=== PATIENT | male | born 1935 | race Caucasian/White ===

== ENCOUNTER 2018-02-13 15:18 | Outpatient (CLI) | payer MEDICARE ==
--- NOTE | 2018-02-13 16:09 | RAD ---
CERVICAL SPINE SEVEN VIEWS: HISTORY: Cervicalgia. COMPARISON: None. FINDINGS: There is no prevertebral soft tissue swelling. The predental space is normal. On the open-mouth pro jection, limited evaluation of the odontoid process. The lateral masses of C1 and C2 articulate appr opriately. On the AP projection, there are degenerative changes of the facets. Calcifications of the right neck , compatible with atherosclerosis. The oblique views suggest significant bilateral foraminal narrowing. Evaluation is limited. Cervical spine vertebral body height is maintained. No fracture. In the neutral position, there is 1 mm of retrolisthesis of C4 upon C5. Retrolisthesis resolves upon flexion, and there is 2 mm of ret rolisthesis of C4 upon C5 upon extension. In the neutral position, there is 2.7 mm of anterolisthesi s of C7 upon T1. Upon flexion, there is 3.1 mm of anterolisthesis. Upon extension, there is 3.7 mm of anterolisthesis. IMPRESSION: Spondylolisthesis and degenerative changes, as above. Consider MRI. POS: JAY
== END 2018-02-13 15:19 | disposition home or self-care (01) ==
LOC: RAD 15:18
PROVIDERS: ATTEND Family Medicine
DX: M99.01 Segmental and somatic dysfunction of cervical region (principal); M46.01 Spinal enthesopathy, occipito-atlanto-axial region; M54.2 Cervicalgia; M99.00 Segmental and somatic dysfunction of head region; M47.892 Other spondylosis, cervical region; M43.12 Spondylolisthesis, cervical region
CPT/HCPCS: 72052

== ENCOUNTER 2018-07-31 17:36 | Inpatient (IN) | payer MEDICARE ==
[~2018-07-31 17:36] MED LIST: Iopamidol 370 76% 100 ML VIAL ONE
[2018-07-31 18:48] LABS: #Eosinphils 0.1 thou/uL (0.0-0.7); #Lymphocytes 2.1 thou/uL (1.20-3.40); #Monocytes 0.6 thou/uL (0.11-0.59); #Neutrophils 10.9 thou/uL (1.40-6.50); %Basophils 0.3 % (0.0-1.0); %Eosinophils 0.6 % (0.0-10.0); %Lymphocytes 15.4 % (21.0-51.0); %Monocytes 4.4 % (0.0-10.0); %Neutrophils 79.3 % (42.0-75.0); Hemoglobin 15.5 g/dL (14.0-18.0); Mean Corpuscular Hemoglobin 32.2 pg (27.0-31.0); Mean Corpuscular Volume 97.7 fL (78.0-98.0); Platelet Count 251 thou/uL (130-400); RBC Distribution Width 11.5 % (11.5-14.5); White Blood Cell (WBC) Count 13.8 thou/uL (4.8-10.8)
[2018-07-31 19:08] LABS: ALT (SGPT) 32 U/L (8-55); AST (SGOT) 23 U/L (5-34); Albumin 4.5 g/dL (3.4-4.8); Alkaline Phosphatase 72 U/L (40-150); Anion Gap 19 mmol/L (10-20); BUN (Urea Nitrogen) 27 mg/dL (8.4-25.7); Calc. Creatinine Clearance 0 mL/min (70-130); Calcium 10.8 mg/dL (7.8-10.44); Carbon Dioxide 25 mmol/L (23-31); Chloride 101 mmol/L (98-107); Estimated GFR-MDRD 40; Globulin 2.9 g/dL (2.4-3.5); Glucose 190 mg/dL (83-110); Potassium 3.6 mmol/L (3.5-5.1); Protein, Total 7.4 g/dL (5.8-8.1); Sodium 141 mmol/L (136-145)
[2018-07-31 19:38] LABS: CKMB 1.9 ng/mL (0-6.6)
[2018-07-31] MEDS ORDERED: Digoxin 0.5 MG/2 ML AMP ONE (19:39)
--- NOTE | 2018-07-31 19:46 | RAD ---
RADIOGRAPH CHEST 1 VIEW: HISTORY: An 83-year-old male with chest pain. FINDINGS: There are no air space densities, pulmonary edema, pneumothorax, or cardiomegaly. The lateral costop hrenic angles are sharp. IMPRESSION: No acute cardiopulmonary findings. jn [] POS: JAY
--- NOTE | 2018-07-31 20:08 | CT ---
CT ARTERIOGRAM CHEST WITH IV CONTRAST AND 3D MIP IMAGIN07/31/18 HISTORY: Cough. Chest pain. FINDINGS: There is good contrast opacification of the pulmonary arteries. Contrast has not yet reached the aort a. There is calcification within the arterial structures. Mild atelectasis at the lung bases. No pleural fluid or pneumothorax. Anterior most images show small nonspecific cystic lesions within the liver and hyperdense stones in the dependent portion of the gallbladder lumen. IMPRESSION: No CT evidence of pulmonary embolus. Atherosclerosis. Cholelithiasis. POS: BST
[2018-07-31] MEDS ORDERED: Aspirin Chewable 81 MG TAB ONE (20:47)
[2018-07-31] MEDS ORDERED: Enoxaparin Sodium 80 MG/0.8 ML SYRINGE ONE (20:56)
[2018-08-01 01:24] LABS: CKMB 1.5 ng/mL (0-6.6)
[2018-08-01] MEDS ORDERED: cloNIDine 0.1 MG TAB PO PRN (10:50)
[2018-08-01] MEDS ORDERED: Diabetic Tussin 200 MG/10 ML UDCUP PO PRN (10:50)
[2018-08-01] MEDS ORDERED: Ondansetron PF 4 MG/2 ML Vial IVP PRN (10:50)
[2018-08-01] MEDS ORDERED: Acetaminophen 500 MG TAB PO PRN (10:50)
[2018-08-01] MEDS ORDERED: Ondansetron ODT 4 MG TAB PO PRN (10:50)
[2018-08-01] MEDS ORDERED: Sodium Chloride 0.9% 1,000 ML IV SCH (10:50)
[2018-08-01] MEDS ORDERED: Benzonatate 100 MG CAP PO PRN (10:50)
[2018-08-01] MEDS ORDERED: Enoxaparin Sodium 60 MG/0.6 ML SYRINGE SC SCH ×3 (11:00→21:00)
[2018-08-01] MEDS ORDERED: Digoxin 0.25 MG TAB PO SCH (12:30)
[2018-08-01 12:31] VITALS: BMI 21.9
[2018-08-01] MEDS: Dronedarone HCl 400 MG TAB PO SCH (17:21)
--- NOTE | 2018-08-01 18:30 | CON ---
DATE OF CONSULTATION: 08/01/2018 REASON FOR CONSULTATION: Atrial fibrillation. HISTORY OF PRESENT ILLNESS: Mr. Manning is a very pleasant 83-year-old white gentleman, who comes to the hospital for an irregular heartbeat. He had noticed for the last week cough and just generalized weakness. He went to see Dr. Nunez, his PCP, and she heard an irregular heartbeat on physical exam, did an EKG and found him to be in atrial fibrillation with RVR, so he was transferred over to the hospital for further care. He denies any palpitations. No syncope or presyncope. He has only been having just weakness and coughing for the last week. He has never been in atrial fibrillation in the past. He denies any chest pain, tightness, or pressure. No shortness of breath. PAST MEDICAL HISTORY: 1. Burkitt lymphoma, currently in remission, treated at [facility]. 2. Renal failure during chemotherapy, had dialysis for some time, but not anymore. PAST SURGICAL HISTORY: 1. Left knee repair. 2. Right shoulder repair. 3. Left shoulder repair. 4. Cardiac cath with several stents placed in the past. SOCIAL HISTORY: Social alcohol use. No drug use. No tobacco. He does chew tobacco. FAMILY HISTORY: No early coronary artery disease. OUTPATIENT MEDICATIONS: Include: 1. Aspirin 81 a day. 2. Coreg 3.125 b.i.d. ALLERGIES: NO KNOWN DRUG ALLERGIES. REVIEW OF SYSTEMS: A 12-point review of systems was done, and it was all negative unless stated in the history of present illness. PHYSICAL EXAMINATION: VITAL SIGNS: Temperature 98.2, pulse 95, respiratory rate 16, saturation 97% on room air, and blood pressure 103/62. GENERAL: Awake, alert, and oriented x3, in no distress. HEENT: Normocephalic and atraumatic. NECK: Supple. LUNGS: Clear. CARDIOVASCULAR: Irregularly irregular heart rate in the 80s. Normal S1 and S2. No S3. No murmurs. ABDOMEN: Soft. Positive bowel sounds. EXTREMITIES: No edema. SKIN: Warm and dry. LABORATORY DATA: Laboratory work was reviewed. White count of 13, hemoglobin of 15, hematocrit of 46, platelet count of 251. Chemistries with BUN of 27, creatinine of 1.64, GFR of 40, glucose of 190, calcium of 10.8. Normal sodium and potassium. Magnesium was 1.7. Troponin was 0.58, 0.40, and 0.47. CK-MB was normal x2. Normal TSH. Albumin of 4.5. EKG was reviewed, atrial fibrillation with RVR. CT of the chest showed no evidence of pulmonary embolus. There are atherosclerosis and cholelithiasis. Chest x-ray was reviewed. ASSESSMENT: 1. New onset atrial fibrillation. 2. Possible bronchitis. 3. Elevated troponins, likely demand ischemia secondary to their behavior and to clinical scenario. 4. History of Burkitt lymphoma, in remission. Completely cured apparently. PLAN: 1. Since it is his first time in atrial fibrillation, we will plan on doing a JONNATHAN cardioversion. We will start him on Multaq and Eliquis this evening, and we will plan on doing this JONNATHAN cardioversion in the morning. We spoke at length about the risks and benefits of the procedure, and he agrees to proceed. 2. Eventually, he will need an ischemic workup. We will get an echocardiogram as well inpatient. Thank you for letting me to participate in the care of your patient. We will follow. Job ID: [id number]
[2018-08-01] MEDS: Carvedilol 3.125 MG TAB PO SCH (20:14)
[2018-08-01] MEDS: Apixaban 2.5 MG TAB PO SCH (20:14)
[2018-08-01] MEDS: Famotidine 20 MG TAB PO SCH (20:15)
[2018-08-01] MEDS ORDERED: Simvastatin 40 MG TAB PO SCH (21:00)
[2018-08-01] MEDS ORDERED: Ezetimibe 10 MG TAB PO SCH (21:00)
[2018-08-02 05:27] LABS: Anion Gap 17 mmol/L (10-20); BUN (Urea Nitrogen) 27 mg/dL (8.4-25.7); Calc. Creatinine Clearance 47 mL/min (70-130); Calcium 9.7 mg/dL (7.8-10.44); Carbon Dioxide 19 mmol/L (23-31); Chloride 107 mmol/L (98-107); Estimated GFR-MDRD 61; Glucose 96 mg/dL (83-110); Sodium 139 mmol/L (136-145)
[2018-08-02 05:48] LABS: Band 8 % (5-11); Eosinophils 4 % (0-10); Hemoglobin 13.2 g/dL (14.0-18.0); Lymphocytes 19 % (21-51); MDiff Complete? YES; Mean Corpuscular HGB CONC 33.4 g/dL (32.0-36.0); Mean Corpuscular Hemoglobin 33.1 pg (27.0-31.0); Mean Corpuscular Volume 99.3 fL (78.0-98.0); Mean Platelet Volume 8.9 fL (7.4-10.4); Monocytes 6 % (0-10); Neutrophil 63 % (42-75); Platelet Count 224 thou/uL (130-400); RBC Distribution Width 11.3 % (11.5-14.5); Red Blood Cell (RBC) Count 3.98 mill/uL (4.70-6.10); White Blood Cell (WBC) Count 10.1 thou/uL (4.8-10.8)
--- NOTE | 2018-08-02 08:26 | HP ---
PRIMARY CARE PROVIDER: Marcia Nunez MD CHIEF COMPLAINT: Cough and dizziness. HISTORY OF PRESENT ILLNESS: This is an 83-year-old male, who was referred to [facility] by his primary care provider after presenting with increased cough, general weakness, and dizziness. The patient states that his primary care provider took a look at him and thought he looked "terrible," and did an EKG in the office. The patient was discovered with atrial fibrillation with rapid ventricular response and referred to the emergency room, where a 12-lead EKG confirmed atrial fibrillation with heart rates in the 130s. The patient received digoxin, IV fluids, and Lovenox in the emergency room with rate control noted on telemetry monitoring. The patient was also noted with elevated troponin I ranging between 0.41 to 0.58. The patient denied any specific chest pain or cardiac complaints, but has noted some palpitations over the last 2 weeks. The patient admits to increased cough, congestion, and general weakness over 2 weeks stretch and has had minimal energy and decreased activity level. The patient denies any prior history of atrial fibrillation, but does state a significant history of coronary artery disease, status post cardiac stent placement x5. The patient denies any lower extremity swelling, unilateral weakness, difficulty with speech, or facial asymmetry. The patient denies any change to his chronic medication regimen or exposure history. The patient currently denies any specific symptoms. PAST MEDICAL HISTORY: 1. Coronary artery disease, status post cardiac stent placement x5. 2. Burkitt lymphoma, in current remission. 3. Dyslipidemia. 4. Hypertension. 5. Status post acute myocardial infarction. 6. Osteoarthritis. 7. History of renal failure secondary to chemotherapy, resolved. PAST SURGICAL HISTORY: 1. Status post bilateral shoulder repair. 2. Status post left mandibular lymph node removal. 3. Status post knee surgery. 4. Status post hernia repair. CURRENT MEDICATIONS: Based on prior admission, 1. Carvedilol 3.125 mg p.o. b.i.d. 2. Vytorin 10/80 mg 1 tab p.o. daily. 3. Folic acid 1 mg p.o. daily. 4. Enteric-coated aspirin 81 mg p.o. daily. ALLERGIES: NO KNOWN DRUG ALLERGIES. FAMILY HISTORY: Positive for father with stroke and hypertension. Mother had coronary artery disease. SOCIAL HISTORY: The patient is since 2013. No current alcohol, tobacco, or illicit drug use. Functional of all activities of daily living. REVIEW OF SYSTEMS: CONSTITUTIONAL: Negative for weight loss or gain, ability to conduct usual activities. SKIN: Negative for rash, itching. EYES: Negative for double vision, pain. ENT/MOUTH: Negative for nose bleeding, neck stiffness, pain, tenderness. CARDIOVASCULAR: Negative for palpitations, dyspnea on exertion, orthopnea. RESPIRATORY: Negative for shortness of breath, wheezing, cough, hemoptysis, fever or night sweats. GASTROINTESTINAL: Negative for poor appetite, abdominal pain, heartburn, nausea, vomiting, constipation, or diarrhea. GENITOURINARY: Negative for urgency, frequency, dysuria, nocturia. MUSCULOSKELETAL: Negative for pain, swelling. NEUROLOGIC/PSYCHIATRIC: Negative for anxiety, depression. ALLERGY/IMMUNOLOGIC: Negative for skin rash, bleeding tendency. Otherwise negative except as stated per HPI. PHYSICAL EXAMINATION: VITAL SIGNS: Currently, blood pressure 100/77, pulse 95, respiratory rate 16, temperature 98.1 degrees Fahrenheit, O2 saturation 100% on room air. GENERAL APPEARANCE: This is an 83-year-old male, alert and oriented x3, pleasant, conversant, in no acute distress. HEENT: Pupils are equal, round, reactive to light and accommodation. Extraocular muscles are intact. No scleral icterus. No conjunctival injection. Nares patent. OP is clear. Teeth in good repair. NECK: Supple. No cervical adenopathy. No thyromegaly. No carotid bruits. No JVD appreciated. Cervical spine with full active and passive range of motion. CHEST: Lungs are clear to auscultation bilaterally. CARDIOVASCULAR: S1 and S2 with irregular rate and rhythm. ABDOMEN: Rounded, soft, nontender, and nondistended. Bowel sounds are positive in all 4 quadrants. There is no hepatosplenomegaly. No abdominal bruits. No rebound or guarding appreciated. EXTREMITIES: Warm and dry with fair turgor. No clubbing, cyanosis, or asymmetric edema appreciated. Pulses palpable distally at the dorsalis pedis, posterior tibial, and popliteal arteries bilaterally. Capillary refill less than 2 seconds. NEUROLOGIC: Cranial nerves 2 through 12 are grossly intact. No focal or lateralizing signs appreciated. PERTINENT LAB AND X-RAY FINDINGS: Sodium 141, potassium 3.6, chloride 101, CO2 of 25, BUN 27, creatinine 1.64, estimated GFR of 40, glucose 190, calcium 10.8. LFTs within normal limits. Troponin I ranged between 0.41 to 0.58. CBC showed a white blood cell count of 13.8, hemoglobin 15.5, hematocrit 47, platelet count 251 with 79% neutrophils. Portable chest x-ray dated 07/31/2018 by my review shows no acute cardiopulmonary process. CT angiogram of the chest dated 07/31/2018 showed no evidence for pulmonary embolus. EKG dated 07/31/2018 by my interpretation shows atrial fibrillation with rapid ventricular response, heart rates in the 130s. Attenuated R-waves noted in the precordial leads. Left axis deviation. ASSESSMENT AND PLAN: 1. Atrial fibrillation with rapid ventricular response. Questionable onset given the patient's pulmonary complaints over 2 weeks time span prior to admission. We will continue rate control strategy and initiate digoxin 0.25 mg daily. Resume Coreg 3.125 mg p.o. b.i.d. We will consult Cardiology Service for evaluation. Check 2D transthoracic echocardiogram. CHADSVASC 2 score of 4. Currently, we will initiate Lovenox 60 mg subcutaneously q.12 hours and plan for oral anticoagulation for discharge. Check TSH and magnesium level. 2. Acute kidney injury. Suspect volume mediated. We will continue intravenous normal saline at 100 mL/hour. Avoid nephrotoxic agents and limit contrast exposure. Repeat creatinine in the a.m. 3. Non-ST elevation myocardial infarction. We will continue Lovenox as stated previously. Continue aspirin 81 mg daily. We will consult Cardiology Service for evaluation. Check 2D transthoracic echocardiogram. 4. Dyslipidemia. We will confirm home regimen and resume antihyperlipidemic therapy. 5. Prophylaxis. SCDs while in bed. Pepcid 20 mg p.o. b.i.d. 6. Code status is full. Surrogate medical decision maker is the patient's daughter. Job ID: [id number]
[2018-08-02] MEDS ORDERED: Non-Formulary Item 1 EACH (Ezetimibe/Simvastatin [Vytorin] 1 TABLET) PO SCH (09:00)
[2018-08-02] MEDS: Dronedarone HCl 400 MG TAB PO SCH (09:14)
[2018-08-02] MEDS: Carvedilol 3.125 MG TAB PO SCH (09:15)
[2018-08-02] MEDS: Famotidine 20 MG TAB PO SCH (09:15)
[2018-08-02] MEDS: Apixaban 2.5 MG TAB PO SCH (09:15)
--- NOTE | 2018-08-02 09:54 | PDOC.PN ---
- Subjective Encounter Start Date: 08/02/18 Encounter Start Time: 09:45 Subjective: f/u for A-fib RVR with variable rate currently. No new complaints -: and receiving Multaq, Eliquis, Coreg. - Objective Resuscitation Status - Order Detail: 08/01/18 10:35 Resuscitation Status Routine Resuscitation Status: FULL: Full Resuscitation MAR Reviewed: Yes Vital Signs & Weight: Vital Signs (12 hours) Temp Pulse Resp BP BP Pulse Ox 08/02/18 08:00 98.8 F 86 16 100/67 98 08/02/18 03:25 98.9 F 51 L 16 100/65 92 L 08/01/18 23:35 99 F 100 14 100/67 93 L Weight Weight 149 lb I&O: 08/01/18 08/02/18 08/03/18 06:59 06:59 06:59 Intake Total 480 Output Total 250 Balance 230 Result Diagrams: 08/02/18 04:29 08/02/18 04:29 Additional Labs: Laboratory Tests 08/01/18 08/01/18 11:18 11:18 Magnesium 1.7 TSH 3rd Generation 1.4668 Radiology Reviewed by me: Yes (2D echo - pending) EKG Reviewed by me: Yes (Tele - A-fib in low 100's) Phys Exam - Physical Examination Constitutional: NAD HEENT: PERRLA, sclera anicteric, oral pharynx no lesions Neck: no nodes, no JVD, supple, full ROM Respiratory: no wheezing, no rales, no rhonchi, clear to auscultation bilateral S1, S2 Cardiovascular: no significant murmur, no rub, gallop, irregular Gastrointestinal: soft, non-tender, no distention, positive bowel sounds Musculoskeletal: no edema, pulses present Neurological: normal sensation, moves all 4 limbs Psychiatric: normal affect, A&O x 3 Skin: normal turgor, cap refill <2 seconds Dx/Plan (1) Atrial fibrillation with rapid ventricular response Code(s): I48.91 - UNSPECIFIED ATRIAL FIBRILLATION Status: Acute Comment: Appears new-onset, plan for JONNATHAN/Cardioversion today, continue rate-control strategy, Multaq, Coreg and Eliquis (2) Demand ischemia of myocardium Code(s): I24.8 - OTHER FORMS OF ACUTE ISCHEMIC HEART DISEASE Status: Acute Comment: Likely due to #1, will need ischemic workup in the near future, ASA, Zocor (3) KVNG (acute kidney injury) Code(s): N17.9 - ACUTE KIDNEY FAILURE, UNSPECIFIED Status: Acute Comment: Improved with IVF's, avoid nephrotoxic meds and limit contrast exposure (4) Dyslipidemia Code(s): E78.5 - HYPERLIPIDEMIA, UNSPECIFIED Status: Chronic Comment: Continue Zocor 80mg HS (5) CAD (coronary artery disease) Code(s): I25.10 - ATHSCL HEART DISEASE OF [place] CORONARY ARTERY W/O ANG PCTRS Status: Chronic Comment: Continue ASA, Zocor, Coreg, outpt workup for ischemia - Plan social worker clinical, out of bed/ambulate, DVT proph w/SCDs Stable currently -: Continue Multaq 400mg BID -: Continue Eliquis 2.5mg BID -: JONNATHAN/Cardioversion today -: 2D echo pending * .
[2018-08-02 12:00] VITALS: BP 94/61; TEMP 99
[2018-08-02] MEDS ORDERED: PROPOFOL 20 ML ONE (12:24)
[2018-08-02] MEDS ORDERED: ePHEDrine/0.9% NaCl/PF SYRINGE 50 mg/10 ml ONE ×2 (12:41→16:22)
--- NOTE | 2018-08-02 14:11 | PDOC.CTH ---
Cardiology Progress Note - Subjective He had his JONNATHAN cardioversion and converted to sinus to several PAC's. - Objective Vital Signs Temp Pulse Resp BP BP Pulse Ox 08/02/18 11:57 99.0 F 86 16 94/61 100 08/02/18 08:00 98.8 F 86 16 100/67 98 08/02/18 07:35 98 08/02/18 03:25 98.9 F 51 L 16 100/65 92 L Weight 149 lb 08/01/18 08/02/18 08/03/18 06:59 06:59 06:59 Intake Total 480 Output Total 250 Balance 230 - Physical Examination General/Neuro: alert & oriented x3, NAD Neck: no JVD present Lungs: unlabored respirations Heart: RRR Abdomen: NT/ND Extremities: other: (no edema) - Telemetry Telemetry Rhythm: Afib --> NSR with PAC's - Labs Result Diagrams: 08/02/18 04:29 08/02/18 04:29 Troponin/CKMB CK-MB (CK-2) 1.5 ng/mL (0-6.6) 08/01/18 00:31 Troponin I 0.475 ng/mL (< 0.028) H* 08/01/18 00:31 - Assessment/Plan 1. Afib RVR, new onset 2. Dilated CM EF at 35-40% on JONNATHAN, new onset. PLAN: - Switch Multaq to AMiodarone due to LV dysfunction. - Will load amiodarone at 400 mg bid for 7 days then 200 mg daily - May d/c home. Will plan on seeing him back in clinic in 3 weeks and schedule outpatient stress and repeat echo.
[2018-08-02] MEDS ORDERED: PROPOFOL 200 MG/20 ML VIAL ONE (16:22)
[2018-08-02] MEDS ORDERED: Simvastatin 40 MG TAB PO SCH (21:00)
[2018-08-02] MEDS ORDERED: Amiodarone 200 MG TAB PO SCH (21:00)
--- NOTE | 2018-08-03 03:29 | DIS ---
DATE OF ADMISSION: 07/31/2018 DATE OF DISCHARGE: 08/02/2018 DISCHARGE DIAGNOSES: 1. New-onset atrial fibrillation with rapid ventricular response. 2. Dilated cardiomyopathy with ejection fraction of 35% to 40%. 3. Status post cardioversion with return to sinus mechanism. 4. Demand ischemia of the myocardium. 5. Acute kidney injury, resolved. 6. Dyslipidemia. 7. Coronary artery disease, chronic and stable. CONSULTATIONS: Dr. Torres with Cardiology Service. PERTINENT LAB AND X-RAY FINDINGS: Creatinine ranged between 1.15 to 1.64. Estimated GFR ranged between 40 to 61. Calcium ranged between 9.7 to 10.8. Magnesium level 1.7. LFTs within normal limits. Troponin I ranged between 0.409 to 0.581. TSH 1.5. CBC showed a white blood cell count ranged between 10.1 to 13.8. Portable chest x-ray dated 07/31/2018, showed no acute cardiopulmonary process. CT angiogram of the chest dated 07/31/2018, showed no evidence for pulmonary embolus. HOSPITAL COURSE: The patient was admitted to the telemetry unit after initially presenting with atrial fibrillation with rapid ventricular response, initially managed with IV fluids, digoxin, and subcutaneous Lovenox. The patient was evaluated by the Cardiology Service with recommendations to proceed with transesophageal echocardiogram followed by cardioversion. The patient continued on anticoagulation with CHADSVASc2 score of 4, placed on Eliquis 2.5 mg b.i.d. The patient underwent cardioversion on 08/02/2018 with successful return to sinus mechanism. The patient transitioned to amiodarone 400 mg b.i.d. with recommendations for 7-day course followed by 200 mg daily thereafter. Overall, the patient remained clinically stable during the hospital course with stable vital signs. I have examined the patient at time of discharge and discussed followup instructions. The patient overall clinically stable and ready for discharge on 08/02/2018. DISCHARGE MEDICATIONS: 1. Amiodarone 400 mg p.o. b.i.d. x7 days, followed by 200 mg p.o. daily. 2. Eliquis 2.5 mg p.o. b.i.d. 3. Coreg 3.125 mg p.o. b.i.d. 4. Enteric-coated aspirin 81 mg p.o. daily. 5. Ferrous sulfate 325 mg p.o. daily. 6. Folic acid 1 mg p.o. daily. 7. Buckner-3 fatty acids 1 capsule p.o. daily. 8. Crestor 10 mg p.o. daily. 9. Vitamin B complex 1 tablet p.o. daily. FOLLOWUP: The patient may follow up with Dr. Marcia Nunez within 7 days of discharge. The patient may follow up with Dr. Torres with [facility] within 3 weeks of discharge. CONDITION ON DISCHARGE: Stable. ACTIVITY: Ad-pedro pablo. SPECIAL INSTRUCTIONS: No PHAN inhibitor or ARB indicated due to hypotension. DIET: Heart healthy. CODE STATUS: Full. DISPOSITION: Home, 08/02/2018. Job ID: [id number]
--- NOTE | 2018-08-03 10:50 | EKG ---
Test Reason : Blood Pressure : / mmHG Vent. Rate : 134 BPM Atrial Rate : 134 BPM P-R Int : 000 ms QRS Dur : 104 ms QT Int : 368 ms P-R-T Axes : 000 047 241 degrees QTc Int : 549 ms Atrial fibrillation with rapid ventricular response with premature ventricular or aberrantly conducte d complexes Septal infarct , age undetermined Abnormal ECG Confirmed by DAVID SIERRA DO ([id number]), video news editor ROBERTA TORRES ([id number]) on 08/03/2018 10:50:13 AM Referred By: Confirmed By:DAVID SIERRA DO
--- NOTE | 2018-09-14 09:17 | ECHO ---
CARDIOLOGY PROCEDURE NOTE: Date: 08/02/18 PROCEDURE: Transesophageal echocardiogram. REASON FOR PROCEDURE: Transesophageal echo was performed for preparation of cardioversion. PROCEDURE DETAILS: The anesthesiology department provided sedation for the patient. Please see their notes for details. After adequate sedation was achieved, the transesophageal probe was inserted into the mouth and esoph inés without problems. Multiplanar views were then obtained. FINDINGS: Left ventricle appears to be normal size with normal wall thickness. Systolic function is reduced, es timated at 35-40%, with global hypokinesis. Left atrium is dilated. Left atrial appendage is a large appendage with spontaneous echo contrast, but no mass or thrombus, a nd reduced velocities. Right atrium is mildly dilated. Right ventricle is normal size with normal systolic function. Aortic root is normal size. Aortic valve is sclerotic, but opens well. No stenosis or regurgitation. Mitral valve is structurally normal. There is moderate MR. No stenosis. Tricuspid valve is structurally normal. There is mild TR. Pulmonary valve is structurally normal. Grade II out of V atherosclerotic disease from the thoracic aorta. CONCLUSIONS: 1. Reduced systolic function, ejection fraction at 35-40%. 2. Biatrial enlargement. 3. Left atrial appendage is large, no mass or thrombus. Reduced velocities. 4. Moderate MR. 5. Mild TR. 6. Aortic sclerosis.
--- NOTE | 2018-09-14 09:23 | OP ---
CARDIOLOGY PROCEDURE NOTE: Date: 08/02/18 PROCEDURE: Electrical cardioversion. PROCEDURE DETAILS: Mr. Manning was brought down to the PACU for planned JONNATHAN/cardioversion. JONNATHAN was done earlier, please se e notes for details. Anesthesiology department provided sedation for the patient. After adequate liss tion was achieved and the transesophageal echo had ruled out thrombus, one single AICD shock synchron ized was delivered at 150 joules, successfully converting him into sinus rhythm with PVCs. RECOMMENDATION: 1. Switch Multaq to amiodarone given LV dysfunction, load of 400 mg b.i.d. for 7 days and then 200 m g a day. 2. Full anticoagulation. 3. May discharge later today; follow-up in the office in 1 month.
== END 2018-08-02 16:38 | disposition home or self-care (01) | DRG 309 ==
LOC: ERS 17:36 → ERHOLD 20:20 → 2NO 08-01 12:23
PROVIDERS: ADMIT Hospitalist; ATTEND Hospitalist
PROC: 5A2204Z Restoration of Cardiac Rhythm, Single (ICD-10-PCS; principal; 2018-08-02)
PROC: B24BZZ4 Ultrasonography of Heart with Aorta, Transesophageal (ICD-10-PCS; 2018-08-02)
DX: I48.91 Unspecified atrial fibrillation (principal); N17.9 Acute kidney failure, unspecified; Z79.01 Long term (current) use of anticoagulants; E78.5 Hyperlipidemia, unspecified; I25.10 Atherosclerotic heart disease of native coronary artery without angina pectoris; Z86.718 Personal history of other venous thrombosis and embolism; I25.2 Old myocardial infarction; I10 Essential (primary) hypertension; Z95.5 Presence of coronary angioplasty implant and graft; M19.90 Unspecified osteoarthritis, unspecified site; I42.0 Dilated cardiomyopathy
CPT/HCPCS: 20605; 20610; 36415; 71045; 71275; 80048; 80053; 82553; 83735; 84443; 84484; 85007; 85025; 85027; 92960; 93005; 93010; 93312; 96372; 99213; 99214; G0463; J1040; J1160; J1650; J2704; Q9967

== ENCOUNTER 2018-10-24 12:45 | Outpatient (CLI) | payer MEDICARE ==
--- NOTE | 2018-10-24 13:35 | ULT ---
BILATERAL RENAL ULTRASOUND COMPLETE: Date: 10/24/18 HISTORY: Chronic kidney disease. FINDINGS: The right kidney measures 8.8 x 6.4 x 6.1 cm. The left kidney measures 9.1 x 4.5 x 4.9 cm. There is no renal hydronephrosis. Small bilateral renal cysts. No perinephric process. The urinary bladder appears unremarkable. There is some nodular fullness of the prostate gland. IMPRESSION: Somewhat small kidneys bilaterally without renal hydronephrosis. Small renal cysts. Somewhat nodular prostate gland. POS: OFF
== END 2018-10-24 12:46 | disposition home or self-care (01) ==
LOC: BICULT 12:45
PROVIDERS: ATTEND Internal Medicine Nephrology
DX: N18.3 Chronic kidney disease, stage 3 (moderate) (principal); N27.1 Small kidney, bilateral; N40.2 Nodular prostate without lower urinary tract symptoms; N28.1 Cyst of kidney, acquired
CPT/HCPCS: 36415; 76770; 80048; 83970; 84100; 84403; 84443; 85025

== ENCOUNTER 2018-11-15 13:04 | Outpatient (CLI) | payer MEDICARE ==
[2018-11-15 15:06] LABS: #Basophils 0.1 thou/uL (0.0-0.2); #Eosinphils 0.6 thou/uL (0.0-0.7); #Lymphocytes 2.7 thou/uL (1.20-3.40); #Monocytes 1.1 thou/uL (0.11-0.59); #Neutrophils 6.9 thou/uL (1.40-6.50); %Basophils 0.9 % (0.0-1.0); %Eosinophils 5.2 % (0.0-10.0); %Lymphocytes 23.2 % (21.0-51.0); %Monocytes 9.8 % (0.0-10.0); %Neutrophils 60.8 % (42.0-75.0); Hemoglobin 12.1 g/dL (14.0-18.0); Mean Corpuscular HGB CONC 32.5 g/dL (32.0-36.0); Mean Corpuscular Hemoglobin 32.3 pg (27.0-31.0); Mean Corpuscular Volume 99.4 fL (78.0-98.0); Mean Platelet Volume 8.7 fL (7.4-10.4); Platelet Count 245 thou/uL (130-400); RBC Distribution Width 12.7 % (11.5-14.5); Red Blood Cell (RBC) Count 3.73 mill/uL (4.70-6.10); White Blood Cell (WBC) Count 11.4 thou/uL (4.8-10.8)
[2018-11-15 15:10] LABS: INR-International Normal Ratio 1.1; Prothrombin Time 14.3 SEC (12.0-14.7)
[2018-11-15 15:11] LABS: PTT 31.2 SEC (22.9-36.1)
[2018-11-15 15:16] LABS: Bilirubin Negative (Negative); Blood, Urine Negative (Negative); Clarity CLEAR (Clear); Glucose, Urine (Dipstick) Negative (Negative); Leukocyte Negative (Negative); Nitrite Negative (Negative); Protein, Urine (Dipstick) Negative (Neg-Trace); Specific Gravity, Urine 1.024 (1.002-1.036); Urobilinogen 0.2 mg/dL (0.2-1.0); pH, Urine 6.5 (5.0-9.0)
[2018-11-15 15:18] LABS: Bacteria/HPF None Seen HPF (None Seen); Hyaline Casts/LPF 0-3 HYALINE CAST LPF (0-3 Hyaline); RBC/HPF 0-3 HPF (0-3); Squamous Epithelial None Seen HPF (0-3); WBC/HPF 0-3 HPF (0-3)
[2018-11-15 15:26] LABS: Anion Gap 9 mmol/L (10-20); BUN (Urea Nitrogen) 27 mg/dL (8.4-25.7); Calc. Creatinine Clearance 0 mL/min (70-130); Calcium 10.7 mg/dL (7.8-10.44); Carbon Dioxide 30 mmol/L (23-31); Chloride 106 mmol/L (98-107); Estimated GFR-MDRD 53; Glucose 101 mg/dL (83-110); Potassium 4.4 mmol/L (3.5-5.1); Sodium 141 mmol/L (136-145)
== END 2018-11-15 13:05 | disposition home or self-care (01) ==
LOC: LABBT 13:04
PROVIDERS: ATTEND Orthopaedic Surgery
DX: Z01.818 Encounter for other preprocedural examination (principal); M19.011 Primary osteoarthritis, right shoulder
CPT/HCPCS: 80048; 81001; 85025; 85610; 85730; 86850; 86900; 86901; 93005; 93010

== ENCOUNTER 2018-11-21 05:31 | Observation (INO) | payer MEDICARE ==
[2018-11-15 13:22] VITALS: BMI 21.9
[2018-11-21] MEDS ORDERED: Midazolam HCl 2 mg/2 ml Vial ONE ×2 (06:21→06:44)
[2018-11-21] MEDS ORDERED: Fentanyl 100 MCG/2 ML VIAL ONE ×2 (06:21→06:44)
[2018-11-21] MEDS ORDERED: Tranexamic Acid 1,000 MG/10 ML VIAL ONE (06:43)
[2018-11-21] MEDS ORDERED: Sodium Chloride 0.9% 100 ML ONE (06:44)
[2018-11-21] MEDS ORDERED: Promethazine HCl 25 MG/ML VIAL IM PRN ×3 (08:32→09:40)
[2018-11-21] MEDS ORDERED: Ropivacaine 0.2% 550 ML 550 ML NERVE BLCK SCH (08:32)
[2018-11-21] MEDS ORDERED: traMADol HCl 50 MG TAB PO PRN ×2 (08:32)
[2018-11-21] MEDS ORDERED: Ondansetron PF 4 MG/2 ML Vial IVP PRN ×2 (08:32→09:40)
[2018-11-21] MEDS ORDERED: Zolpidem Tartrate 5 MG TAB PO PRN ×2 (08:32→09:40)
[2018-11-21] MEDS ORDERED: HYDROcodone/Acetaminophen 7.5/325 mg Tablet PO PRN ×3 (08:33→17:45)
[2018-11-21] MEDS ORDERED: Fentanyl 100 MCG/2 ML VIAL IV PRN (08:34)
--- NOTE | 2018-11-21 08:53 | HP ---
HISTORY OF PRESENT ILLNESS: The patient is a pleasant 83-year-old male, who is right-hand dominant, works as business services manager. The patient presents with right shoulder pain, with history of rotator cuff [place] [address] Ferguson, has history of left total shoulder arthroplasty by Dr. Ferguson. The patient has history of AFib and underwent an echo. His pain in his right shoulder is severe. It affects his ability to do things. It wakes him up at nighttime. He is unable to sleep on his right shoulder. I discussed with the patient. PAST MEDICAL HISTORY: Includes coronary artery disease, hyperlipidemia, ND, vitamin D deficiency, Burkitt's, and AFib. PAST SURGICAL HISTORY: Include a left total shoulder, right rotator cuff repair. ALLERGIES: NO KNOWN DRUG ALLERGIES. MEDICATIONS: See full list for details, history of taking, 1. Eliquis. 2. Aspirin. 3. Carvedilol. 4. Iron. 5. Fish oil. 6. Vitamin D. 7. B complex. SOCIAL HISTORY: Nonsmoker, no alcohol. The patient is a business services manager. His significant other is at bedside. PHYSICAL EXAMINATION: GENERAL: Alert and oriented male, in no acute distress, resting comfortably in bed. EXTREMITIES: Right shoulder shows a previous arthroscopic anchor with continued loss of joint space, medialization and central wear. No obvious proximal migration. IMPRESSION: Right shoulder osteoarthritis with history of rotator cuff repair. ASSESSMENT AND PLAN: I discussed with the patient and his significant other that my plan will be for a right shoulder replacement, either a primary total shoulder versus reverse shoulder arthroplasty. The indication for primary total shoulder with an intact rotator cuff without that could be utilized there. I would not perform a total shoulder if the patient has a rotator cuff on evaluation today. We would perform a reverse shoulder arthroplasty or if the patient's cuff appears damage and not functional. I discussed the difference between the 2, with an attempt to try to reverse the primary to have matching sides, but if the patient's cuff looks bad, I will be concerned that he would not have the functional outcome that I would want, therefore I would proceed with reverse. I discussed that he would understand biceps tenodesis. I discussed the risks and benefits of surgery, pain, scar, bleeding, infection, damage to vital structures, decreased range of motion, nonunion, fracture above or below the stem, loss of life or limb. The patient understood these risks and benefits and likes to proceed. We will proceed back for his right total shoulder versus reverse shoulder arthroplasty with biceps tenodesis. Job ID: [id number]
[2018-11-21] MEDS ORDERED: Promethazine HCl 25 MG/ML VIAL SLOW IVP PRN (09:40)
[2018-11-21] MEDS ORDERED: Ondansetron HCl/PF 4 MG/2 ML Vial IVP PRN (09:40)
[2018-11-21] MEDS ORDERED: Morphine Sulfate 2 MG/ML SYRINGE SLOW IVP PRN (09:40)
[2018-11-21] MEDS ORDERED: HYDROmorphone 2 MG/ML VIAL SLOW IVP PRN (09:40)
[2018-11-21] MEDS ORDERED: PACU-Morphine 4MG/ML VIAL SLOW IVP PRN (09:40)
[2018-11-21] MEDS ORDERED: Acetaminophen 325 MG TAB PO PRN (13:04)
[2018-11-21] MEDS ORDERED: HYDROcodone/Acetaminophen 10/325 mg Tablet PO PRN ×2 (13:04)
[2018-11-21] MEDS ORDERED: Ondansetron ODT 4 MG TAB PO PRN (13:04)
[2018-11-21] MEDS ORDERED: Bisacodyl 10 MG SUPP PR PRN (13:04)
[2018-11-21] MEDS ORDERED: Methocarbamol 500 MG TAB PO PRN (13:04)
[2018-11-21] MEDS ORDERED: Milk Of Magnesia 30 ML UDCUP PO PRN (13:04)
[2018-11-21] MEDS ORDERED: Methocarbamol 1 GM/10 ML VIAL SLOW IVP PRN (13:04)
[2018-11-21] MEDS ORDERED: diphenhydrAMINE 50 MG CAP PO PRN (13:04)
[2018-11-21] MEDS ORDERED: Ropivacaine 0.2% HCl/PF (40 MG/20 ML VIAL) ONE (13:17)
[2018-11-21] MEDS ORDERED: Ropivacaine 0.5% HCl/PF (150 MG/30 ML VIAL) ONE (13:17)
[2018-11-21] MEDS ORDERED: PHENYLEPHRINE-NS 100 MCG/ML 10 ML SYRINGE ONE (13:52)
[2018-11-21] MEDS ORDERED: Rocuronium Bromide 10 MG/ML (10ML VIAL) ONE (13:52)
[2018-11-21] MEDS ORDERED: Glycopyrrolate 0.2 MG/ML 5 ML SYRINGE ONE (13:52)
[2018-11-21] MEDS ORDERED: PROPOFOL 200 MG/20 ML VIAL ONE (13:52)
[2018-11-21] MEDS ORDERED: Ondansetron PF 4 MG/2 ML Vial ONE (13:52)
[2018-11-21] MEDS ORDERED: Lidocaine 1% PF 5 ML VIAL ONE (13:52)
[2018-11-21] MEDS ORDERED: Dexamethasone 20 MG/5 ML VIAL ONE (13:52)
[2018-11-21] MEDS ORDERED: ePHEDrine 50 MG/ML VIAL ONE (13:52)
[2018-11-21] MEDS: Lactated Ringer's 1,000 ML IV SCH (15:51)
[2018-11-21] MEDS: CEFAZOLIN 2 GM in Premix Bag 1 BAG IVPB SCH ×2 (15:51→21:47)
[2018-11-21] MEDS ORDERED: Vancomycin HCl 1 GM in Premix Bag 1 BAG IVPB SCH (19:00)
[2018-11-21] MEDS ORDERED: Rosuvastatin 20 MG TAB PO SCH (21:00)
[2018-11-21] MEDS: Famotidine 20 MG TAB PO SCH (21:47)
[2018-11-21] MEDS: Carvedilol 3.125 MG TAB PO SCH (21:47)
[2018-11-22] MEDS: Lactated Ringer's 1,000 ML IV SCH ×2 (05:16→08:54)
[2018-11-22 07:24] VITALS: TEMP 98.5
[2018-11-22] MEDS ORDERED: Ferrous Sulfate 325 MG TAB PO SCH (08:00)
--- NOTE | 2018-11-22 08:34 | OP ---
DATE OF PROCEDURE: 11/21/2018 PREOPERATIVE DIAGNOSIS: Right shoulder osteoarthritis, history of rotator cuff repair. POSTOPERATIVE DIAGNOSIS: Right shoulder osteoarthritis, history of rotator cuff repair. PROCEDURES PERFORMED: 1. Right total shoulder arthroplasty. 2. Right biceps tenodesis. LUMBER ESTIMATOR: Zane Finley PA-C ANESTHESIOLOGIST: Zeeshan Whittington MD ANESTHESIA: The patient received a general endotracheal intubation with interscalene block. ESTIMATED BLOOD LOSS: 200 mL. TOURNIQUET TIME: None. IMPLANTS: A Tornier CortiLoc M40, a Tornier 43 x 16 mm low-offset head, and a Tornier Flex B stem. ANTIBIOTICS: Vancomycin 1 g, Ancef 2 g, and TXA 1 g. COMPLICATIONS: None. HISTORY OF PRESENT ILLNESS: Mr. Manning is a pleasant 83-year-old male, who is right-hand dominant. Has history of a right rotator cuff repair. The patient had a left total shoulder arthroplasty performed by Dr. Ferguson years ago. The patient desired to have a right total shoulder arthroplasty. The patient desired to have his shoulder replaced because of his increased pain, activities. I have discussed with him the risks and benefits of the surgery to include pain, scar, bleeding, infection, damage to vital structures, decreased range of motion, strength, nonunion, malunion, fracture above or below the stem, needing further surgeries, loss of life or limb. The patient understands risks and benefits and elected to proceed. DESCRIPTION OF PROCEDURE: Time-out was performed designating the patient's right upper extremity as the operative site based on site, consents, and marking. After time-out, the patient's right upper extremity was prepped and draped in a sterile fashion. After the time-out performed designating the patient's right upper extremity as the operative site, we did deltopectoral incision, came down took the vein laterally, came down on the patient's biceps, came into the biceps sheath, cut the biceps, took down the patient's subscap with a peel, exposed the humeral head, dislocated, there was intact cuff. It was not completely torn. Therefore, I elected to continue with total shoulder as opposed to converting to reverse. I cut the patient's humerus, had to recut. We broached up to size 3, placed a man whole cover in position, then exposed the glenoid. We did a 360 degree release, exposed the entire glenoid, placed our M40, which seemed to fit well in the glenoid face. We placed it within the center-center and liked the overall alignment and fit. We then marked , drilled our center hole. We broached and reamed by hand, drilled our 3 cortical holes, washed out, cleaned up the bleeding, placed cement in all three pegs and cemented our M40 CortiLoc in position. We then moved back to the humerus. We currently worked, we broached up to a size 4, which fit better. I felt like the overall size went up and down from a 43 to next size, but ultimately ended up in a 43 centered, felt like it fit well. We then positioned the 43 and had it as we desired. We chose that as our final implant, waited until the cement had hardened after about 17 minutes. We put 4 drill holes with #5 Ethibond through bone, we then placed 5 total stitches, one through the lateral aspect through the stem to help with the double row equivalent. We then passed the graft in position. We sewed to close the subscap down, all 4 stitches. We then took it down to biceps tendon in the groove, passed it through the 2 cuffs, closed with 0 Vicryl. We then cut that. We then went back with our last #5 and did our over the top with the stitch from the lateral tuberosity through the subscap cut. Final stitch washed, closed the rotator interval with #1 Ethibond, washed and closed with 0, 2-0, and liseth. The patient will be admitted to the hospital overnight. The patient will receive 24 hours of antibiotics. He will be discharged home tomorrow if his pain is controlled. Start his Eliquis and aspirin in 24 hours postop. Job ID: [id number] [facility]
[2018-11-22] MEDS: Carvedilol 3.125 MG TAB PO SCH (08:48)
[2018-11-22] MEDS: Famotidine 20 MG TAB PO SCH (08:49)
[2018-11-22] MEDS ORDERED: Apixaban 2.5 MG TAB PO SCH (09:00)
[2018-11-22] MEDS ORDERED: Aspirin 81 mg Enteric Coated Tablet PO SCH (09:00)
[2018-11-22] MEDS ORDERED: Fish Oil 1,000 MG CAP PO SCH (09:00)
[2018-11-22] MEDS ORDERED: Cholecalciferol (Vitamin D3) 400 UNITS TAB PO SCH (09:00)
[2018-11-22] MEDS ORDERED: Folic Acid 1 MG TAB PO SCH (09:00)
[2018-11-22] MEDS ORDERED: Folic Acid/Vit B Comp W-C PO SCH (09:00)
[2018-11-22 11:40] VITALS: BP 128/74
[2018-11-22] MEDS ORDERED: Tamsulosin HCl 0.4 MG CAP PO SCH (12:00)
[2018-11-22] MEDS ORDERED: Sodium Chloride 0.9% 1,000 ML IV SCH (13:15)
== END 2018-11-22 15:30 | disposition home or self-care (01) ==
LOC: SDC 05:31 → SURG A 12:31
PROVIDERS: ADMIT Orthopaedic Surgery; ATTEND Orthopaedic Surgery
PROC: 0RRJ0JZ Replacement of Right Shoulder Joint with Synthetic Substitute, Open Approach (ICD-10-PCS; principal; 2018-11-21)
PROC: 0LS10ZZ Reposition Right Shoulder Tendon, Open Approach (ICD-10-PCS; 2018-11-21)
DX: M19.011 Primary osteoarthritis, right shoulder (principal); I25.10 Atherosclerotic heart disease of native coronary artery without angina pectoris; E78.5 Hyperlipidemia, unspecified; I48.91 Unspecified atrial fibrillation; I25.2 Old myocardial infarction; E55.9 Vitamin D deficiency, unspecified; Z79.01 Long term (current) use of anticoagulants; Z79.82 Long term (current) use of aspirin; Z79.899 Other long term (current) drug therapy
CPT/HCPCS: 23430; 23472; 51702; 64415; 96361 ×2; 96365; 96366; 96367; 97116 ×2; 97139 ×5; 97535; A4306; C1713; G0378; J0690; J1100; J2001; J2250; J2405; J2704; J2795; J3010; J3370; J3490

== ENCOUNTER 2019-01-30 11:14 | Outpatient (CLI) | payer MEDICARE ==
[2019-01-30 12:59] LABS: #Basophils 0.1 thou/uL (0.0-0.2); #Eosinphils 0.5 thou/uL (0.0-0.7); #Lymphocytes 2.4 thou/uL (1.20-3.40); #Monocytes 0.9 thou/uL (0.11-0.59); #Neutrophils 6.3 thou/uL (1.40-6.50); %Eosinophils 4.5 % (0.0-10.0); %Lymphocytes 23.4 % (21.0-51.0); %Neutrophils 62.1 % (42.0-75.0); Hemoglobin 11.7 g/dL (14.0-18.0); Mean Corpuscular HGB CONC 31.4 g/dL (32.0-36.0); Mean Corpuscular Hemoglobin 31.2 pg (27.0-31.0); Mean Corpuscular Volume 99.3 fL (78.0-98.0); Mean Platelet Volume 8.8 fL (7.4-10.4); Platelet Count 227 thou/uL (130-400); RBC Distribution Width 13.3 % (11.5-14.5); Red Blood Cell (RBC) Count 3.75 mill/uL (4.70-6.10); White Blood Cell (WBC) Count 10.2 thou/uL (4.8-10.8)
[2019-01-30 13:04] LABS: INR-International Normal Ratio 1.1; PTT 31.6 SEC (22.9-36.1); Prothrombin Time 14.3 SEC (12.0-14.7)
[2019-01-30 13:23] LABS: ALT (SGPT) 16 U/L (8-55); AST (SGOT) 17 U/L (5-34); Albumin 4.4 g/dL (3.4-4.8); Alkaline Phosphatase 75 U/L (40-150); Anion Gap 13 mmol/L (10-20); BUN (Urea Nitrogen) 27 mg/dL (8.4-25.7); Bilirubin, Total 0.4 mg/dL (0.2-1.2); Calc. Creatinine Clearance 0 mL/min (70-130); Calcium 10.7 mg/dL (7.8-10.44); Carbon Dioxide 28 mmol/L (23-31); Chloride 107 mmol/L (98-107); Estimated GFR-MDRD 47; Globulin 2.3 g/dL (2.4-3.5); Glucose 86 mg/dL (83-110); Potassium 5.1 mmol/L (3.5-5.1); Protein, Total 6.7 g/dL (5.8-8.1); Sodium 143 mmol/L (136-145)
== END 2019-01-30 11:15 | disposition home or self-care (01) ==
LOC: LABBT 11:14
PROVIDERS: ATTEND Internal Medicine Cardiovascular Disease
DX: Z01.812 Encounter for preprocedural laboratory examination (principal); R94.39 Abnormal result of other cardiovascular function study
CPT/HCPCS: 80053; 85025; 85610; 85730

== ENCOUNTER → 2019-02-06 | Day surgery (SDC) | payer MEDICARE ==
[2019-01-30 11:28] VITALS: BMI 22.3
[~2019-02-06] MED LIST changes: +Fentanyl 100 MCG/2 ML VIAL ONE; +Heparin 10,000 UNITS/1 ML VIAL ONE; +Iopamidol 370 76% 50 ML VIAL FS ONE; +Lidocaine 1% (PF) 30 ML VIAL ONE; +Midazolam HCl 2 mg/2 ml Vial ONE; +Nitroglycerin 100MG/250ML BOT 250 ML ONE; +Verapamil 5 MG/2 ML VIAL ONE
[2019-02-06 07:47] LABS: Cardiac Risk 3.5 (Less than 4.5)
== END ==
LOC: CCL 05:50
PROVIDERS: ATTEND Internal Medicine Cardiovascular Disease
PROC: 4A023N7 Measurement of Cardiac Sampling and Pressure, Left Heart, Percutaneous Approach (ICD-10-PCS; principal; 2019-02-06)
PROC: B2001ZZ Plain Radiography of Single Coronary Artery using Low Osmolar Contrast (ICD-10-PCS; 2019-02-06)
DX: I25.10 Atherosclerotic heart disease of native coronary artery without angina pectoris (principal)
CPT/HCPCS: 80061; 85347; 92920; 93458; 99152; 99153; C1769; C1887; J1644; J2001; J2250; J3010

== ENCOUNTER 2019-05-28 09:41 | Outpatient (CLI) | payer MEDICARE ==
--- NOTE | 2019-05-28 10:08 | RAD ---
XR Chest Pa Lat STANDARD HISTORY: Cough COMPARISON: 01/31/2014 FINDINGS: The heart size is normal. The aorta is tortuous The lungs are well expanded without focal a reas of consolidation, pneumothorax or pleural effusions. There is evidence of old granulomatous disease. There are bilateral humeral head prostheses IMPRESSION: No radiographic evidence of acute cardiopulmonary process.
== END 2019-05-28 09:42 | disposition home or self-care (01) ==
LOC: BICRAD 09:41
PROVIDERS: ATTEND Family Medicine
DX: R05 Cough (principal)
CPT/HCPCS: 36415; 71046; 80053; 84443; 85025

== ENCOUNTER 2020-09-06 14:49 | Outpatient (CLI) | payer MEDICARE ==
--- NOTE | 2020-09-06 15:21 | RAD ---
EXAM: 2 views of the left hip HISTORY: Left hip pain COMPARISON: None FINDINGS: 2 views of the left hip shows no evidence of acute fracture or dislocation. No degenerative changes are seen. No soft tissue swelling is present. Vascular calcifications are seen. Phleboliths are seen in the pelvis. IMPRESSION: No evidence of acute osseous abnormality.
== END 2020-09-06 14:50 | disposition home or self-care (01) ==
LOC: BICRAD 14:49
PROVIDERS: ATTEND Family Medicine
DX: M70.62 Trochanteric bursitis, left hip (principal); M25.552 Pain in left hip; G89.4 Chronic pain syndrome

== ENCOUNTER → 2021-09-15 | Outpatient (CLI) | payer MEDICARE ==
[2021-09-15 14:36] LABS: #Basophils 0.1 thou/uL (0.0-0.2); #Eosinphils 0.3 thou/uL (0.0-0.7); #Neutrophils 6.5 thou/uL (1.40-6.50); %Basophils 0.7 % (0.0-1.0); %Eosinophils 2.8 % (0.0-10.0); %Lymphocytes 26.1 % (21.0-51.0); %Monocytes 9.2 % (0.0-10.0); %Neutrophils 61.1 % (42.0-75.0); Hemoglobin 12.2 g/dL (14.0-18.0); Mean Corpuscular HGB CONC 32.2 g/dL (32.0-36.0); Mean Corpuscular Hemoglobin 33.8 pg (27.0-31.0); Mean Platelet Volume 8.3 fL (7.4-10.4); Platelet Count 243 thou/uL (130-400); RBC Distribution Width 11.7 % (11.5-14.5); Red Blood Cell (RBC) Count 3.61 mill/uL (4.70-6.10); White Blood Cell (WBC) Count 10.7 thou/uL (4.8-10.8)
[2021-09-15 14:53] LABS: Prothrombin Time 13.3 sec (12.0-14.7)
[2021-09-15 23:51] LABS: SARS-CoV-2 PCR by NAA Not Detected (NotDetected)
[2021-11-28 10:50] LABS: Anion Gap 15 mmol/L (10-20); BUN (Urea Nitrogen) 19 mg/dL (8.4-25.7)
[2021-11-28 10:51] LABS: Calc. Creatinine Clearance 0 mL/min (70-130); Carbon Dioxide 24 mmol/L (23-31); Chloride 108 mmol/L (98-107); Glucose 174 mg/dL (83-110)
[2021-11-28 10:52] LABS: Potassium 4.6 mmol/L (3.5-5.1); Sodium 142 mmol/L (136-145)
== END ==
LOC: LABBT 14:00
PROVIDERS: ATTEND Orthopaedic Surgery
DX: Z01.812 Encounter for preprocedural laboratory examination (principal); Z20.822 Contact with and (suspected) exposure to COVID-19
CPT/HCPCS: 80048; 85025; 85610; U0003; U0005; 36415

== ENCOUNTER 2021-12-07 06:09 | Day surgery (SDC) | payer MEDICARE ==
[2021-12-06 14:02] VITALS: BMI 21.7
[2021-12-07 07:27] LABS: INR-International Normal Ratio 1.1; Prothrombin Time 14.3 sec (12.0-14.7)
[2021-12-07 07:28] LABS: PTT 40.7 sec (22.9-36.1)
[2021-12-07] MEDS ORDERED: PROPOFOL 20 ML ONE (07:48)
[2021-12-07] MEDS ORDERED: Lidocaine 2% PF 5 ML VIAL ONE (07:48)
[2021-12-07 08:16] LABS: SARS-CoV-2 NAA Rapid Test Not Detected (NotDetected)
== END 2021-12-07 09:16 | disposition home or self-care (01) ==
LOC: SDC 06:09
PROVIDERS: ATTEND Internal Medicine Cardiovascular Disease
PROC: 5A2204Z Restoration of Cardiac Rhythm, Single (ICD-10-PCS; principal; 2021-12-07)
DX: I48.91 Unspecified atrial fibrillation (principal); I10 Essential (primary) hypertension; E78.5 Hyperlipidemia, unspecified; I25.10 Atherosclerotic heart disease of native coronary artery without angina pectoris; I42.0 Dilated cardiomyopathy; I35.1 Nonrheumatic aortic (valve) insufficiency; Z85.72 Personal history of non-Hodgkin lymphomas; Z87.891 Personal history of nicotine dependence; Z79.01 Long term (current) use of anticoagulants; Z79.82 Long term (current) use of aspirin; Z79.899 Other long term (current) drug therapy; Z95.5 Presence of coronary angioplasty implant and graft; Z20.822 Contact with and (suspected) exposure to COVID-19
CPT/HCPCS: 85610; 85730; 93005; U0002; 92960; 93010; J2001; J2704

== ENCOUNTER → 2022-01-09 | Day surgery (SDC) | payer MEDICARE ==
[2022-01-06 09:40] VITALS: BMI 21.1
[~2022-01-09] MED LIST changes: +Dronedarone HCl 400 MG TAB ONE; -Fentanyl 100 MCG/2 ML VIAL ONE; -Heparin 10,000 UNITS/1 ML VIAL ONE; -Iopamidol 370 76% 100 ML VIAL ONE; -Iopamidol 370 76% 50 ML VIAL FS ONE; -Lidocaine 1% (PF) 30 ML VIAL ONE; -Midazolam HCl 2 mg/2 ml Vial ONE; -Nitroglycerin 100MG/250ML BOT 250 ML ONE; +PROPOFOL 20 ML ONE; -Verapamil 5 MG/2 ML VIAL ONE
[2022-01-09 11:11] LABS: #Eosinphils 0.2 thou/uL (0.0-0.7); #Lymphocytes 1.9 thou/uL (1.20-3.40); #Monocytes 0.8 thou/uL (0.11-0.59); #Neutrophils 4.2 thou/uL (1.40-6.50); %Basophils 0.6 % (0.0-1.0); %Eosinophils 3.5 % (0.0-10.0); %Lymphocytes 25.9 % (21.0-51.0); %Monocytes 11.4 % (0.0-10.0); %Neutrophils 58.6 % (42.0-75.0); Hemoglobin 11.8 g/dL (14.0-18.0); Mean Corpuscular HGB CONC 31.4 g/dL (32.0-36.0); Mean Corpuscular Hemoglobin 31.7 pg (27.0-31.0); Mean Platelet Volume 8.4 fL (7.4-10.4); Platelet Count 238 thou/uL (130-400); RBC Distribution Width 12.5 % (11.5-14.5); Red Blood Cell (RBC) Count 3.72 mill/uL (4.70-6.10); White Blood Cell (WBC) Count 7.2 thou/uL (4.8-10.8)
[2022-01-09 12:03] LABS: SARS-CoV-2 NAA Rapid Test Not Detected (NotDetected)
== END | disposition home or self-care (01) ==
LOC: SDC 09:48
PROVIDERS: ATTEND Internal Medicine Cardiovascular Disease
PROC: 5A2204Z Restoration of Cardiac Rhythm, Single (ICD-10-PCS; principal; 2022-01-09)
DX: I48.91 Unspecified atrial fibrillation (principal); I10 Essential (primary) hypertension; E78.5 Hyperlipidemia, unspecified; I25.10 Atherosclerotic heart disease of native coronary artery without angina pectoris; Z87.891 Personal history of nicotine dependence; Z79.01 Long term (current) use of anticoagulants; Z79.899 Other long term (current) drug therapy; Z95.5 Presence of coronary angioplasty implant and graft; Z20.822 Contact with and (suspected) exposure to COVID-19
CPT/HCPCS: 85025; 92960; 93005; U0002; 36415; 93010; J2704

== ENCOUNTER 2022-01-25 09:58 | Day surgery (SDC) | payer MEDICARE ==
[2022-01-24 10:10] VITALS: BMI 21.4
[2022-01-25 11:09] LABS: Hemoglobin 12.7 g/dL (14.0-18.0); Mean Corpuscular HGB CONC 31.5 g/dL (32.0-36.0); Mean Corpuscular Hemoglobin 31.5 pg (27.0-31.0); Mean Platelet Volume 8.6 fL (7.4-10.4); Platelet Count 270 thou/uL (130-400); RBC Distribution Width 12.6 % (11.5-14.5); Red Blood Cell (RBC) Count 4.02 mill/uL (4.70-6.10)
[2022-01-25 11:32] LABS: Anion Gap 13 mmol/L (10-20); BUN (Urea Nitrogen) 20 mg/dL (8.4-25.7); Calc. Creatinine Clearance 40 mL/min (70-130); Calcium 10.6 mg/dL (7.8-10.44); Carbon Dioxide 25 mmol/L (23-31); Chloride 108 mmol/L (98-107); Estimated GFR 57; Glucose 102 mg/dL (83-110); Potassium 4.3 mmol/L (3.5-5.1); Sodium 142 mmol/L (136-145)
== END 2022-01-25 12:09 | disposition home or self-care (01) ==
LOC: SDC 09:58
PROVIDERS: ATTEND Internal Medicine Cardiovascular Disease
DX: I48.91 Unspecified atrial fibrillation (principal); U07.1 COVID-19; F17.220 Nicotine dependence, chewing tobacco, uncomplicated; I42.0 Dilated cardiomyopathy; I35.1 Nonrheumatic aortic (valve) insufficiency; I25.10 Atherosclerotic heart disease of native coronary artery without angina pectoris; Z53.09 Procedure and treatment not carried out because of other contraindication; Z79.01 Long term (current) use of anticoagulants; Z79.82 Long term (current) use of aspirin; Z79.899 Other long term (current) drug therapy
CPT/HCPCS: 36415; 80048; 85027; 87811; 93005; 93010

== ENCOUNTER 2022-02-03 06:02 | Day surgery (SDC) | payer MEDICARE ==
[2022-02-02 09:03] VITALS: BMI 21.4
[2022-02-03] MEDS ORDERED: PROPOFOL 20 ML ONE (07:16)
[2022-02-03] MEDS ORDERED: ePHEDrine 50 MG/ML VIAL ONE (07:45)
[2022-02-03] MEDS ORDERED: Hydrocortisone 1% Cream 30 GM TUBE ONE (08:01)
== END 2022-02-03 09:00 | disposition home or self-care (01) ==
LOC: SDC 06:02
PROVIDERS: ATTEND Internal Medicine Cardiovascular Disease
PROC: 5A2204Z Restoration of Cardiac Rhythm, Single (ICD-10-PCS; principal; 2022-02-03)
DX: I48.91 Unspecified atrial fibrillation (principal); I10 Essential (primary) hypertension; E78.5 Hyperlipidemia, unspecified; I25.10 Atherosclerotic heart disease of native coronary artery without angina pectoris; Z87.891 Personal history of nicotine dependence; Z79.01 Long term (current) use of anticoagulants; Z79.82 Long term (current) use of aspirin; Z79.899 Other long term (current) drug therapy; Z95.5 Presence of coronary angioplasty implant and graft
CPT/HCPCS: 92960; 93005; 93010; J2704; J3490

== ENCOUNTER 2022-07-25 11:27 | Outpatient (CLI) | payer MEDICARE | END 2022-07-25 11:28 | disposition home or self-care (01) | LOC: BICRAD 11:27 | PROVIDERS: ATTEND Family Medicine | DX: R05.1 Acute cough (principal) | CPT/HCPCS: 71046 ==

== ENCOUNTER 2023-02-22 10:11 | Emergency (ER) | payer MEDICARE ==
[2023-02-22 10:44] LABS: #Basophils 0.1 thou/uL (0.0-0.2); #Eosinphils 0.3 thou/uL (0.0-0.7); #Monocytes 0.5 thou/uL (0.11-0.59); #Neutrophils 5.3 thou/uL (1.40-6.50); %Basophils 0.8 % (0.0-1.0); %Eosinophils 4.1 % (0.0-10.0); %Lymphocytes 21.9 % (21.0-51.0); %Monocytes 6.8 % (0.0-10.0); %Neutrophils 66.1 % (42.0-75.0); Hematocrit 36.4 % (42.0-52.0); Hemoglobin 11.9 g/dL (14.0-18.0); Mean Corpuscular HGB CONC 32.7 g/dL (32.0-36.0); Mean Corpuscular Hemoglobin 32.4 pg (27.0-31.0); Mean Corpuscular Volume 99.2 fl (78.0-98.0); Mean Platelet Volume 10.6 fL (7.4-10.4); Platelet Count 234 10x3/uL (130-400); Red Blood Cell (RBC) Count 3.67 mill/uL (4.70-6.10)
[2023-02-22 11:07] LABS: ALT (SGPT) 21 U/L (8-55); AST (SGOT) 20 U/L (5-34); Albumin 4.2 g/dL (3.4-4.8); Alkaline Phosphatase 72 U/L (40-110); Anion Gap 13 mmol/L (10-20); BUN (Urea Nitrogen) 23 mg/dL (8.4-25.7); Bilirubin, Total 0.6 mg/dL (0.2-1.2); Calc. Creatinine Clearance 0 mL/min (70-130); Calcium 9.9 mg/dL (7.8-10.44); Carbon Dioxide 23 mmol/L (23-31); Chloride 108 mmol/L (98-107); Estimated GFR 49; Globulin 2.5 g/dL (2.4-3.5); Glucose 188 mg/dL (83-110); Potassium 3.9 mmol/L (3.5-5.1); Protein, Total 6.7 g/dL (5.8-8.1); Sodium 140 mmol/L (136-145)
[2023-02-22 11:12] LABS: Troponin I Less than 0.010 ng/mL (< 0.028)
== END 2023-02-22 12:03 | disposition home or self-care (01) ==
LOC: ERS 10:11
DX: R00.2 Palpitations (principal); I10 Essential (primary) hypertension; I48.91 Unspecified atrial fibrillation; F17.220 Nicotine dependence, chewing tobacco, uncomplicated; Z79.82 Long term (current) use of aspirin
CPT/HCPCS: 36415; 71045; 80053; 83605; 83880; 84484; 85025; 93005

== ENCOUNTER 2023-08-21 13:42 | Outpatient (CLI) | payer MEDICARE | END 2023-08-21 13:43 | disposition home or self-care (01) | LOC: BICMAMMO 13:42 | PROVIDERS: ATTEND Family Medicine | DX: Z13.820 Encounter for screening for osteoporosis (principal); E55.9 Vitamin D deficiency, unspecified; M85.89 Other specified disorders of bone density and structure, multiple sites | CPT/HCPCS: 77080 ==

== ENCOUNTER → 2023-09-20 | Day surgery (SDC) | payer MEDICARE ==
[2023-09-17 12:16] VITALS: BMI 22.6
[~2023-09-20] MED LIST changes: -Dronedarone HCl 400 MG TAB ONE; -PROPOFOL 20 ML ONE; +PROPOFOL 200 MG/20 ML VIAL ONE
== END ==
LOC: SDC 08:37
PROVIDERS: ATTEND Internal Medicine Cardiovascular Disease
PROC: 5A2204Z Restoration of Cardiac Rhythm, Single (ICD-10-PCS; principal; 2023-09-20)
DX: I48.0 Paroxysmal atrial fibrillation (principal); I42.0 Dilated cardiomyopathy; I35.1 Nonrheumatic aortic (valve) insufficiency; I25.10 Atherosclerotic heart disease of native coronary artery without angina pectoris; R09.89 Other specified symptoms and signs involving the circulatory and respiratory systems; N19 Unspecified kidney failure; Z79.01 Long term (current) use of anticoagulants; Z79.899 Other long term (current) drug therapy; Z79.82 Long term (current) use of aspirin
CPT/HCPCS: 92960; 93005; 93010; J2704

== ENCOUNTER 2024-06-06 13:13 | Outpatient (CLI) | payer MEDICARE | END 2024-06-06 13:14 | disposition home or self-care (01) | LOC: BICRAD 13:13 | PROVIDERS: ATTEND Family Medicine | DX: R06.00 Dyspnea, unspecified (principal); M47.814 Spondylosis without myelopathy or radiculopathy, thoracic region | CPT/HCPCS: 71046 ==

== ENCOUNTER 2025-05-07 09:51 | Outpatient (CLI) | payer MEDICARE | END 2025-05-07 09:52 | disposition home or self-care (01) | LOC: RAD 09:51 | PROVIDERS: ATTEND Internal Medicine Critical Care Medicine | DX: R06.00 Dyspnea, unspecified (principal) | CPT/HCPCS: 71046 ==